=== PATIENT | female | born 1935 | race American Indian/Alaskan Native ===

== ENCOUNTER 2017-11-04 06:04 | Day surgery (SDC) | payer MEDICARE ==
[2017-11-04] MEDS ORDERED: NACL BACTERIOSTATIC INFILTRATI ONE (06:53)
[2017-11-04] MEDS ORDERED: SUBLIMAZE ONE (07:23)
[2017-11-04] MEDS ORDERED: DIPRIVAN 10 MG/ML IV ONE ×2 (07:23→08:17)
[2017-11-04] MEDS ORDERED: MARCAINE-EPI 0.5%-1:200,000 INFILTRATI ONE ×2 (07:29→08:15)
[2017-11-04] MEDS ORDERED: XYLOCAINE 1% 20 mL ONE (07:42)
[2017-11-04] MEDS ORDERED: SUBLIMAZE IV PRN (07:43)
[2017-11-04] MEDS ORDERED: ZOFRAN IV PRN (07:43)
--- NOTE | 2017-11-04 07:44 | Anesthesia Day of Surgery ---
Anesthesia Day of Surgery - Day of Surgery Patient Examined: Yes Patient H&P Reviewed: Yes Patient is NPO: Yes
--- NOTE | 2017-11-04 07:46 | Anesthesia Consultation ---
Anesthesia Consult and Med Hx Date of service: 11/04/17 - Airway Anesthetic Teeth Evaluation: Dentures (upper. loose lower incisor) ROM Head & Neck: Adequate Mental/Hyoid Distance: Adequate Mallampati Class: Class I Intubation Access Assessment: Probably Good - Pulmonary Exam CTA: Yes - Cardiac Exam Cardiac Exam: RRR - Pre-Operative Health Status ASA Pre-Surgery Classification: ASA3 Proposed Anesthetic Plan: MAC - Pulmonary Hx Asthma: Yes (PRO AIR, SYMBICORT) - Cardiovascular System Hx Hypertension: Yes - Central Nervous System Hx Psychiatric Problems: No - Endocrine Hx Renal Disease: Yes (RENAL CA, s/p Right NEPHRECTOMY) - Other Systems Hx Alcohol Use: Yes (OCCAS) Hx Substance Use: No Hx Cancer: Yes
[2017-11-04] MEDS ORDERED: VANCOMYCIN/NS 1 GM/250 ML 1 GM/250 ML BAG IV SCH (08:00)
[2017-11-04] MEDS ORDERED: LACTATED RINGERS 1,000 ML IV SCH ×2 (08:00)
[2017-11-04] MEDS ORDERED: VERSED IV NR (08:00)
[2017-11-04] MEDS ORDERED: NORMODYNE IV ONE (08:12)
[2017-11-04] MEDS ORDERED: XYLOCAINE MPF 2% ONE (08:12)
[2017-11-04] MEDS ORDERED: NACL 0.9% IR ONE (08:15)
[2017-11-04] MEDS ORDERED: XYLOCAINE 1% 20 mL INFILTRATI ONE (08:15)
[2017-11-04] MEDS ORDERED: ZOFRAN ONE (08:31)
--- NOTE | 2017-11-04 08:41 | Discharge Summary ---
Short Stay Discharge Plan Activity: other (august d/c when stable. home health - d/c packing Tuesday am. irrigate wd with cotton swab with h202/NS pack with mesalt) Weight Bearing Status: Full Weight Bearing Diet: regular Wound: per wound nurse instructions Additional Instructions: aleve I po q 6-8 hrs prn for breakthrough pain Follow up with: RASHEED DAWSON MD [Staff Physician] - 11/08/17
[2017-11-04 09:32] VITALS: BP 129/61
--- NOTE | 2017-11-04 09:47 | Operative Report ---
PREOPERATIVE DIAGNOSIS: Two posterior back nodules, rule out sebaceous cyst, pending final pathology. PROCEDURE: Excision of both aforementioned nodules. SURGEON: Miles Wheeler M.D. ANESTHESIA: 0.5% Marcaine with IV sedation. COMPLICATIONS: No complications. DESCRIPTION OF PROCEDURE: The patient was taken to the operating room and placed in prone position, prepped and draped in usual sterile fashion. Both nodules were removed in similar fashion. Both nodules had also been previously outlined with marking pencil. A combination of 50%, 0.5 Marcaine with epinephrine and Xylocaine plain were infiltrated over the nodules to be excised. The lateral nodule in the upper back was larger and grossly measured approximately 2-3 cm. A smaller midline nodule measured approximately 1 cm. A 15 blade was used to incise skin and subcutaneous tissue. Needle tip was used to dissect down to the capsule. Both nodules were removed in their entirety including the capsule. Grossly, these appeared to be sebaceous cysts. Areas were irrigated copiously and dried. Checked for hemostasis and noted to be dry. The larger nodule of the skin was partially closed with interrupted 4-0 Prolene. Both were packed with quarter-inch iodoform gauze. Fluffs and pressure dressings applied. The patient tolerated the procedure well and left OR in stable condition. JOB# [id number] DEON/TAO
== END 2017-11-04 10:00 | disposition home or self-care (01) ==
LOC: OR 06:04
PROVIDERS: ATTEND Surgery
DX: L72.0 Epidermal cyst (principal); I10 Essential (primary) hypertension; J45.909 Unspecified asthma, uncomplicated; M19.90 Unspecified osteoarthritis, unspecified site; Z79.899 Other long term (current) drug therapy; Z88.6 Allergy status to analgesic agent; Z88.0 Allergy status to penicillin; Z90.5 Acquired absence of kidney; Z72.89 Other problems related to lifestyle; Z85.53 Personal history of malignant neoplasm of renal pelvis
CPT/HCPCS: 11402; 87116; 88305; J2405; J2704; J3010; J3370; J7120